=== PATIENT | male | born 1975 | race Caucasian/White ===

== ENCOUNTER 2020-09-15 15:36 | Emergency (ER) | payer SELFPAY ==
[2020-09-15] MEDS: EPINEPHrine 0.1 mg/mL SYR 10 mL 1 MG IVP ×8 (15:39→16:16)
[2020-09-15 15:41] VITALS: BP 180/121; PULSE 133; RESP 18; O2SAT 81; BMI 27.1
[2020-09-15] MEDS: amiodarone 50 mg/mL SDV 3 mL 150 MG IVP ×2 (15:44→15:51)
[2020-09-15] MEDS: sodium chloride 0.9% 1,000 ML 999 ML IV (15:50)
[2020-09-15] MEDS: naloxone 0.4 mg/ml SDV 1 MG IVP (15:58)
[2020-09-15 16:06] LABS: Basophils # 0.1 10^3/uL (0.0-0.1); Basophils % 0.7 %; Eosinophils # 0.2 10^3/uL (0.0-0.8); Eosinophils % 1.1 %; Hemoglobin 14.8 g/dL (11.7-16.6); Lymphocytes # 8.8 10^3/uL (0.8-4.8); Mean Corpuscular HGB Conc 30.2 g/dL (30.0-36.0); Mean Corpuscular Hemoglobin 29.6 pg (28.0-34.0); Mean Platelet Volume 8.9 fL (7.4-10.4); Monocytes # 0.6 10^3/uL (0.2-0.9); Monocytes % 3.2 %; Neutrophils # 7.82 10^3/uL (1.8-7.7); Neutrophils % 41.8 %; Nucleated Red Blood Cells % 0.2 %; Platelet Count 287 10^3/cmm (130-400); Red Cell Distribution Width 13.5 % (12.1-15.1); White Blood Count 18.7 10^3/uL (4.0-10.0)
[2020-09-15] MEDS: sodium bicarbonate 8.4% 1 mEq/mL 50mL Syr 50 MEQ IVP ×4 (16:06→16:29)
[2020-09-15] MEDS: calcium chloride 10% Syr 10 mL 1 GM IVP (16:12)
--- NOTE | 2020-09-15 16:18 | ECG_ITS ---
[facility] Test Date: 2020-09-15 Pat Name: Maged Rod Department: Room: Gender: Male Child'S Nurse: : 1975 Requested By: Brian Stevens Order Number: [id number] Isak MD: Darian Meza M.D. Measurements Intervals [place] Rate: 135 P: 69 NH: 189 QRS: -88 QRSD: 192 T: 75 QT: 407 QTc: 612 Interpretive Statements SINUS TACHYCARDIA WITH FREQUENT VENTRICULAR PREMATURE COMPLEXES MARKED LEFT AXIS DEVIATION [QRS AXIS < -30] INTRAVENTRICULAR CONDUCTION DELAY [130+ ms QRS DURATION] WARNING: DATA QUALITY MAY AFFECT INTERPRETATION No previous ECG available for comparison Electronically Signed On 09-15-2020 21:01:13 CDT by Darian Meza M.D. [id number] f
[2020-09-15] MEDS: lidocaine drip 2,000 MG/500 ML PREMIX 30 MG IV (16:19)
[2020-09-15 16:25] LABS: Alveolar-Arterial Oxygen Gradi 73.1 mmHg (5-10); Arterial Blood Gas Hematocrit 43.8 % (42-52); Blood Gas Allen Test Pos; Blood Gas Operator Identificat GD; Blood Gas Sample Site Radial, right; Blood Gas Sample Type Arterial; Carboxyhemoglobin 3.6 %THgb (0.4-20.1); HCO3 ABG 19.2 mmol/L (22-26); HGB O2 Sat 85.3 % (95-100); Ionized Calcium Level - ABG 1.4 mmol/L (1.1-1.4); Methemoglobin 0.8 % (0.4-1.5); Oxygen Device AMBU; Oxygen Saturation ABG 89.3; PO2 ABG 76.5 mmHg (80.0-100.0); Potassium Level - ABG 3.2 mmol/L (3.5-5.0); Total Hemoglobin 14.3 g/dL (14-18)
[2020-09-15 16:26] LABS: ABG PCO2 67.1 mmHg (35-45); ABG PH Result 7.07 (7.35-7.45)
[2020-09-15 16:31] VITALS: O2SAT 91
--- NOTE | 2020-09-15 16:32 | ED_ITS ---
HPI - CPR General: Chief Complaint: Cardiac Arrest/CPR Stated Complaint: CPR in progress Time Seen by Provider: 09/15/20 15:55 History of Present Illness: HPI narrative: This patient presented to the emergency department in full cardiac arrest with CPR in progress by EMS. Patient was found in his car at [facility] by bystander. Patient was started on CPR by bystanders. EMS responded within 5 minutes. Began CPR patient was in and out of V. tach V. fib and asystole type rhythm patient had multiple shocks and multiple rounds of epinephrine. Patient has also received over 300 mg of amiodarone prior to arrival. On arrival patient had pupils that were fixed and dilated and already lost his bladder. Patient continued to be in a V. tach V. fib rhythm. Continued had multiple rounds of CPR and epinephrine. Please see nurses notes for all ACLS protocol drugs and patient's MAR. Did consult cardiology Dr. Meza who did come to the bedside. Still had several rounds of CPR and intermittent pulse last rhythm patient appears to be in a rapid wide-complex rhythm but does have a pulse. Patient is on a lidocaine drip and an amiodarone drip. complaint: found unresponsive Onset (ago): minute(s) Time: 15:20 Timing confirmed by: other Place: street Bystander CPR performed: Yes AED applied by bystander/extruder operator helper: Yes Shock advised: Yes Number of shocks delivered: >3 Downtime before ACLS arrival (mins): 5 Initial findings in the field: unresponsive ROSC in the field: Yes Associated injuries: No Treatments prior to arrival: intubation, BMV, chest compressions, defibrillated shocks #, epinephrine mgs # and amiodarone Review of Systems General: Reports: ROS unobtainable due to endotracheal tube, ROS unobtainable due to medical condition and ROS unobtainable due to mental status Physical Exam Cardio: RATE: Other RHYTHM: other Course Reevaluation(s): Reevaluation #1: Patient had several rounds of CPR several rounds of epinephrine patient is on amiodarone drip and lidocaine drip. Patient had epi shock additional times in the emergency department currently patient does have a pulse patient is still unresponsive intubated last blood pressure was 152/88. Patient in CT scan at this time Time: 16:40 Reevaluation #2: I had a long conversation with the patient's father and other family members. We did discuss the patient's significant medical issues at this time and multiple rounds of CPR with multiple shocks. Patient is intubated at this time patient does have a wide-complex rhythm heart rate of 136 with a blood pressure of 148/96 pulse ox is 88% ET tube in place patient on the vent family members have decided to make the patient comfort care if the patient does go into a pulseless rhythm again they wished us to let the patient pass we will honor the family's wishes Time: 16:55 Reevaluation #3: Dr. Ornelas at the bedside time is 171. We did review the case with patient's family they have elected to stop all care at this time and that the patient passed of natural causes. Patient's ventilator was turned off with family's approval per diem interpreter was turned off. We will allow natural . Time: 17:05 Additional Reevaluation(s): Patient was pronounced at 1712. Consultations: Consultation #1: Dr. Meza at the bedside Time: 16:10 Consultation #2: Dr. Ornelas consulted he wishes to wait for head CT and more l abs prior to transferring to ICU. Time: 16:40 Consultation #3: I have discussed further with Dr. Ornelas he will see the pat iealfredo in the emergency department. He is aware that the patient's family wishes the patient be comfort care only at this time if the patient goes into a pulseless rhythm again they do wish no further action be taken. Time: 17:00 Additional Consultation(s): Dr. Ornelas at the bedside time is 171. We did review the case with patient's family they have elected to stop all care at this time and that the patient passed of natural causes. Patient's ventilator was turned off with family's approval per diem interpreter was turned off. We will allow natural . Vital Signs: Vital signs: Vital Signs Pulse Rate 133 H 09/15/20 15:41 Respiratory Rate 14 09/15/20 17:03 Blood Pressure 180/121 09/15/20 15:41 Pulse Oximetry 91 09/15/20 16:31 MDM - Cardiac Arrest/CPR Lab Data: Labs: Lab Results 09/15/20 09/15/20 09/15/20 Range/Units 13:50 13:50 13:50 WBC 18.7 H (4.0-10.0) 10^3/ uL RBC 5.00 (4.1-5.3) 10^6/u L Hgb 14.8 (11.7-16.6) g/dL Hct 49.0 (42.0-52.0) % MCV 98.0 H (80-94) fL MCH 29.6 (28.0-34.0) pg MCHC 30.2 (30.0-36.0) g/dL RDW 13.5 (12.1-15.1) % Plt Count 287 (130-400) 10^3/c mm MPV 8.9 (7.4-10.4) fL Neut % (Auto) 41.8 % Lymph % (Auto) 47.0 % [place] % (Auto) 3.2 % Eos % (Auto) 1.1 % Baso % (Auto) 0.7 % Neut # (Auto) 7.82 H (1.8-7.7) 10^3/u L Lymph # (Auto) 8.8 H (0.8-4.8) 10^3/u L [place] # (Auto) 0.6 (0.2-0.9) 10^3/u L Eos # (Auto) 0.2 (0.0-0.8) 10^3/u L Baso # (Auto) 0.1 (0.0-0.1) 10^3/u L Nucleated RBC % (a uto) 0.2 % Nucleated RBCs # 0.0 /100WBC PT Cancelled INR Cancelled APTT Cancelled Specimen Type Sample Site ABG pH (7.35-7.45) ABG pCO2 (35-45) mmHg ABG pO2 (80.0-100.0) mmH g ABG HCO3 (22-26) mmol/L ABG O2 Saturation ABG Base Excess (-2.0-2.0) mmol/ L Ced Test A-a O2 Gradient (5-10) mmHg Hematocrit (42-52) % Hgb O2 Saturation (95-100) % Carboxyhemoglobin (0.4-20.1) %THgb Methemoglobin (0.4-1.5) % Total Hemoglobin (14-18) g/dL Ionized Calcium (1.1-1.4) mmol/L O2 Delivery Device O2 Liters/Min % FiO2 % Center Receptionist ID Sodium Cancelled Potassium Cancelled Chloride Cancelled Carbon Dioxide Cancelled Anion Gap Cancelled BUN Cancelled Creatinine Cancelled GFR Calculation Cancelled Glucose Cancelled Calculated Osmolal ity Cancelled Lactate (0.5-2.2) mmol/L Calcium Cancelled Magnesium Cancelled Total Bilirubin Cancelled AST Cancelled ALT Cancelled Alkaline Phosphata se Cancelled NT-Pro-B Natriuret Pep Cancelled Total Protein Cancelled Albumin Cancelled Globulin Cancelled Urine Color (Yellow) Urine Appearance (CLEAR) Urine pH (5-7) Ur Specific Gravit y (1.005-1.030) Urine Protein (Negative) Urine Glucose (UA) (Normal) Urine Ketones (Negative) Urine Blood (Negative) Urine Nitrate (Negative) Urine Bilirubin (Negative) Urine Urobilinogen (Negative) mg/dL Ur Leukocyte Marisela ase (Negative) Urine RBC (0-2) /hpf Urine WBC (0-5) /hpf Ur Squamous Epith Cells (0-5) /hpf Amorphous Sediment Urine Bacteria (NONE) /hpf Urine Mucus /hpf Salicylates Cancelled Urine Opiates Scre en (Negative) ng/mL Acetaminophen Cancelled Ur Barbiturates Sc reen (Negative) ng/mL Ur Phencyclidine S crn (Negative) ng/mL Ur Amphetamines Sc reen (Negative) ng/mL U Benzodiazepines Scrn (Negative) ng/mL Urine Cocaine Scre en (Negative) ng/mL U Marijuana (THC) Screen (Negative) ng/mL Ethyl Alcohol Cancelled 09/15/20 09/15/20 09/15/20 Range/Units 13:50 16:15 16:28 WBC (4.0-10.0) 10^3/ uL RBC (4.1-5.3) 10^6/u L Hgb (11.7-16.6) g/dL Hct (42.0-52.0) % MCV (80-94) fL MCH (28.0-34.0) pg MCHC (30.0-36.0) g/dL RDW (12.1-15.1) % Plt Count (130-400) 10^3/c mm MPV (7.4-10.4) fL Neut % (Auto) % Lymph % (Auto) % [place] % (Auto) % Eos % (Auto) % Baso % (Auto) % Neut # (Auto) (1.8-7.7) 10^3/u L Lymph # (Auto) (0.8-4.8) 10^3/u L [place] # (Auto) (0.2-0.9) 10^3/u L Eos # (Auto) (0.0-0.8) 10^3/u L Baso # (Auto) (0.0-0.1) 10^3/u L Nucleated RBC % (a uto) % Nucleated RBCs # /100WBC PT INR APTT Specimen Type Arterial Sample Site Radial, right ABG pH 7.07 L* (7.35-7.45) ABG pCO2 67.1 H* (35-45) mmHg ABG pO2 76.5 L (80.0-100.0) mmH g ABG HCO3 19.2 L (22-26) mmol/L ABG O2 Saturation 89.3 ABG Base Excess -12.0 L (-2.0-2.0) mmol/ L Ced Test Pos A-a O2 Gradient 73.1 H (5-10) mmHg Hematocrit 43.8 (42-52) % Hgb O2 Saturation 85.3 L (95-100) % Carboxyhemoglobin 3.6 (0.4-20.1) %THgb Methemoglobin 0.8 (0.4-1.5) % Total Hemoglobin 14.3 (14-18) g/dL Ionized Calcium 1.4 (1.1-1.4) mmol/L O2 Delivery Device Ambu O2 Liters/Min 15.0 % FiO2 100.0 % Center Receptionist ID Gd Sodium 143.0 Potassium 3.2 L Chloride Carbon Dioxide Anion Gap BUN Creatinine GFR Calculation Glucose 380.0 H Calculated Osmolal ity Lactate 11.5 H* (0.5-2.2) mmol/L Calcium Magnesium Total Bilirubin AST ALT Alkaline Phosphata se NT-Pro-B Natriuret Pep Total Protein Albumin Globulin Urine Color Yellow (Yellow) Urine Appearance Hazy A (CLEAR) Urine pH 5 (5-7) Ur Specific Gravit y 1.020 (1.005-1.030) Urine Protein Trace (Negative) Urine Glucose (UA) Norm (Normal) Urine Ketones Negative (Negative) Urine Blood 3+ H (Negative) Urine Nitrate Negative (Negative) Urine Bilirubin Neg (Negative) Urine Urobilinogen Norm (Negative) mg/dL Ur Leukocyte Marisela ase 1+ H (Negative) Urine RBC 15-25 H (0-2) /hpf Urine WBC 15-25 H (0-5) /hpf Ur Squamous Epith Cells None (0-5) /hpf Amorphous Sediment Not Reportable Urine Bacteria 2+ H (NONE) /hpf Urine Mucus 1+ /hpf Salicylates Urine Opiates Scre en (Negative) ng/mL Acetaminophen Ur Barbiturates Sc reen (Negative) ng/mL Ur Phencyclidine S crn (Negative) ng/mL Ur Amphetamines Sc reen (Negative) ng/mL U Benzodiazepines Scrn (Negative) ng/mL Urine Cocaine Scre en (Negative) ng/mL U Marijuana (THC) Screen (Negative) ng/mL Ethyl Alcohol 09/15/20 Range/Units 16:28 WBC (4.0-10.0) 10^3/ uL RBC (4.1-5.3) 10^6/u L Hgb (11.7-16.6) g/dL Hct (42.0-52.0) % MCV (80-94) fL MCH (28.0-34.0) pg MCHC (30.0-36.0) g/dL RDW (12.1-15.1) % Plt Count (130-400) 10^3/c mm MPV (7.4-10.4) fL Neut % (Auto) % Lymph % (Auto) % [place] % (Auto) % Eos % (Auto) % Baso % (Auto) % Neut # (Auto) (1.8-7.7) 10^3/u L Lymph # (Auto) (0.8-4.8) 10^3/u L [place] # (Auto) (0.2-0.9) 10^3/u L Eos # (Auto) (0.0-0.8) 10^3/u L Baso # (Auto) (0.0-0.1) 10^3/u L Nucleated RBC % (a uto) % Nucleated RBCs # /100WBC PT INR APTT Specimen Type Sample Site ABG pH (7.35-7.45) ABG pCO2 (35-45) mmHg ABG pO2 (80.0-100.0) mmH g ABG HCO3 (22-26) mmol/L ABG O2 Saturation ABG Base Excess (-2.0-2.0) mmol/ L Ced Test A-a O2 Gradient (5-10) mmHg Hematocrit (42-52) % Hgb O2 Saturation (95-100) % Carboxyhemoglobin (0.4-20.1) %THgb Methemoglobin (0.4-1.5) % Total Hemoglobin (14-18) g/dL Ionized Calcium (1.1-1.4) mmol/L O2 Delivery Device O2 Liters/Min % FiO2 % Center Receptionist ID Sodium Potassium Chloride Carbon Dioxide Anion Gap BUN Creatinine GFR Calculation Glucose Calculated Osmolal ity Lactate (0.5-2.2) mmol/L Calcium Magnesium Total Bilirubin AST ALT Alkaline Phosphata se NT-Pro-B Natriuret Pep Total Protein Albumin Globulin Urine Color (Yellow) Urine Appearance (CLEAR) Urine pH (5-7) Ur Specific Gravit y (1.005-1.030) Urine Protein (Negative) Urine Glucose (UA) (Normal) Urine Ketones (Negative) Urine Blood (Negative) Urine Nitrate (Negative) Urine Bilirubin (Negative) Urine Urobilinogen (Negative) mg/dL Ur Leukocyte Marisela ase (Negative) Urine RBC (0-2) /hpf Urine WBC (0-5) /hpf Ur Squamous Epith Cells (0-5) /hpf Amorphous Sediment Urine Bacteria (NONE) /hpf Urine Mucus /hpf Salicylates Urine Opiates Scre en Negative (Negative) ng/mL Acetaminophen Ur Barbiturates Sc reen Negative (Negative) ng/mL Ur Phencyclidine S crn Negative (Negative) ng/mL Ur Amphetamines Sc reen Negative (Negative) ng/mL U Benzodiazepines Scrn Negative (Negative) ng/mL Urine Cocaine Scre en Negative (Negative) ng/mL U Marijuana (THC) Screen Negative (Negative) ng/mL Ethyl Alcohol Discharge Plan Discharge Patient Disposition: Clinical Impression: Cardiac arrest, Acute respiratory failure, Wide-complex tachycardia Coding Level of Care Code ED Personal Care Home Administrator for Chg Fwd Exam Problem Focused
[2020-09-15] MEDS: heparin 5,000 unit/mL INJ 1 mL 4000 UNIT IVP (16:34)
[2020-09-15 16:44] LABS: Lactate (Lactic Acid level) 11.5 mmol/L (0.5-2.2)
[2020-09-15 16:46] LABS: Slide Review Slide Review Perform
[2020-09-15 16:57] LABS: Glucose Urine UA Norm (Normal); Ketones Urine Negative (Negative); Nitrate Urine Negative (Negative); Protein Urine Trace (Negative); Urine Appearance Hazy (CLEAR); Urine Color Yellow (Yellow); pH Urine 5 (5-7)
[2020-09-15 17:00] LABS: Bilirubin Urine Neg (Negative); Blood Urine 3+ (Negative)
[2020-09-15 17:01] LABS: Add Urine Microscopic? YES; Leukocyte Esterase Urine 1+ (Negative); Urobilinogen Urine Norm (Negative)
[2020-09-15 17:03] VITALS: RESP 14
[2020-09-15 17:04] LABS: Amphetamines Screen Urine Negative (Negative); Barbiturates Screen Urine Negative (Negative); Benzodiazepines Screen Urine Negative (Negative); Cocaine Screen Urine Negative (Negative); Opiate Screen Urine Negative (Negative); PCP Screen Urine Negative (Negative); THC Screen Urine Negative (Negative)
[2020-09-15 17:15] LABS: RBC Urine 15-25 /hpf (0-2); WBC Urine 15-25 /hpf (0-5)
[2020-09-15 17:16] LABS: Bacteria Urine 2+ /hpf; Mucus Urine 1+ /hpf
--- NOTE | 2020-09-15 17:16 | PC.NURSE ---
Ventilator turned off at 1712
[2020-09-15 17:17] LABS: Add Urine Culture? Yes
--- NOTE | 2020-09-15 17:20 | PM.MISC ---
Miscellaneous Note Purpose of Documentation: Event note Note: ER called cardiology to assist with management of a patient with cardiac arrest. 45-year-old man who was found in his car unconscious and received bystander CPR before EMS arrived and found him to be in V. tach. He later on went into asystole. Multiple rounds of CPR outside and in the ER. By the time cardiology was called, he had already been coding for close to an hour. He had fixed and dilated pupils. His lactate level was more than 11. He was started on amiodarone and lidocaine drip. He regained his pulse briefly. EKG performed showed sinus tachycardia with multiple PVCs. No evidence of ST elevation CO. Plan was to put him on cooling protocol and try to stabilize him and work him up for underlying etiology. However patient again had a cardiac arrest and family decided to stop any further resuscitation efforts secondary to prolonged CPR and minimal chances of neurological recovery.
--- NOTE | 2020-09-15 17:34 | PC.NURSE ---
1714: TOD 1725: Skidder Lever Operator called 1730: MTS called by Correspondence Dictator Pt's father requested [facility] in [place].
--- NOTE | 2020-09-15 17:40 | PM.CONSULT ---
Providers/Reason For Consult Consulting Physican/Specialty*: Dr. Stevens/ER physician Reason for Consult*: Post cardiac arrest CODE BLUE Requesting Physcian: Dr. Stevens History of Present Illness History of Present Illness Maged Rod is a 45 year old male with no known medical history who was brought in by EMS to the ER with CPR in progress. Patient was found in his car 1 month by bystanders. When EMS responded patient was found to be in wide-complex tachycardia for which he had CPR and multiple shocks with multiple rounds of epinephrine and field. Patient was brought to the ER where he had multiple rounds of CPR going in and out of V. tach-V. fib for which he received multiple rounds of epinephrine, amiodarone along with lidocaine and amiodarone drip. Patient had a CPR for over an hour. As per the ER physician patient's father arrived at that point he was made a DNR and admitted on lidocaine drip was continued. Blood work which was obtained in the ER showed a white count of 18.7, hemoglobin of 14.8, platelet count 287, lactate of 11.5, ABG showing a pH of 7.07, PCO2 of 67, PO2 of 76, glucose of 380, sodium of 143, potassium of 3.2 while UA showed 1+ leuk esterase, 3+ blood and urine drug screen negative. On examination patient was in white complex tachycardia going in and out of V. tach or V. fib on amiodarone drip with blood pressure of 180 systolic saturating 78% on 100% FiO2 with ventilator with a PEEP of 10. Review of Systems General: Reports: ROS unobtainable due to endotracheal tube, ROS unobtainable due to medical condition and ROS unobtainable due to mental status Meds/Allergies Home Medications and Allergies Home Medications Medication Instructions Recorded Confirmed Last Taken Type Unable to Assess 09/15/20 09/15/20 Unknown History Allergies Allergy/AdvReac Type Severity Reaction Status Date / Time Unable to Assess Allergy Unverified 09/15/20 15:58 PFSH Acute PFSH: Family History (Updated 09/15/20 @ 17:51 by Duane Spann MD) Other CAD (coronary artery disease) Vitals/I&O/Wt Last Vital Signs Pulse 133 H 09/15/20 15:41 Resp 14 09/15/20 17:03 BP 180/121 09/15/20 15:41 Pulse Ox 91 09/15/20 16:31 09/15/20 09/15/20 09/15/20 06:59 14:59 22:59 Intake Total 1206 / 1206 Balance 1206 / 1206 Weight last 48 hrs Weight 88.451 kg Physical Exam Narrative: EXAM NARRATIVE: EXAM NARRATIVE: General: Intubated, not sedated not responding to painful stimulus HEENT: PERRLA, pupils bilaterally fixed and not reactive Chest:Bronchial breath sounds b/l ,decreased air entry, equal good air entry bilaterally, no more fine basal crackles CVS: S1-S2 regular tachycardia, faint sound, no gallops, no rubs Abdomen: Soft, nontender, no organomegaly, bowel sounds present, morbidly obese Neuro: Intubated, not sedated, not responding, bilateral fixed pupils, plantars upgoing bilaterally Urinary Catheter Management^: Bhandari: Cath Placed During This Visit: yes Urinary Catheter Date of Insertion: 09/15/20 Urinary Catheter Time of Insertion: 16:25 A&P Assessment and plan (1) Cardiac arrest: Status: Acute (2) Acute respiratory failure: Status: Acute (3) Wide-complex tachycardia: Status: Acute (4) Unknown family medical history: Status: Acute Additional A&P Information Patient was found unresponsive in the parking at [facility] by bystanders in his car and when EMS responded he was in wide-complex tachycardia for unknown period of time. Post EMS responding patient required multiple rounds of CPR including epinephrine, lidocaine amnio boluses and CPR for over 2 hours after which he kept going in and out of wide-complex tachycardia and was coded multiple times with CODE JUAN PABLO called twice. Patient's CODE STATUS was changed to DNR after talking to patient's father who was at bedside. It was discussed with father with Dr. Stevens?ER physician at bedside that unfortunately patient has had a CPR for over 2 hours and it is unknown for how long he was unresponsive with him saturating of around 80% and fixed pupils unfortunately all medical interventions will be futile. At that point patient's father decided to make patient comfort care and lidocaine drip and amiodarone drip was discontinued and patient was extubated. Consult Attestations Medical Necessity Statement: As per primary team. Patient is post CPR comfort care measures only at present and has been terminally extubated. Time Spent in Patient Care: 16 - 35 minutes Coding Level of Care Code Acute Sectionizer for Chg Fwd Diagnoses Cardiac arrest I46.9 Acute respiratory failure J96.00 Wide-complex tachycardia I47.2 Unknown family medical history
--- NOTE | 2020-09-15 18:23 | PC.NURSE ---
6 failed attempts at cardioversion during CODE BLUE. 1547:Vtach, shocked at 120J, then pulseless Vtach 1549:Vtach, shocked at 120J, then pulseless Vtach 1555:Vtach, shocked at 150J, then pulseless Vtach 1602:Vtach, shocked at 200J, then pulseless Vtach 1611:Vtach, shocked at 200J, then pulseless Vtach 1613:Vtach, shocked at 200J, then A-fib with RVR with wide complex QRS and frequent PVCs
--- NOTE | 2020-09-15 18:31 | PC.NURSE ---
CODE FLOW SHEET: Pt arrived to ED with CPR in progress, intubated with BVM support and cardiac pads, IO in place. Pt was transferred to room bed with compressions continued. Pt placed on Zoll and monitoring, see code flow sheet for times of medications and procedures. Dr Meza was at bedside when EKG was obtained at 1620. ABG was obtained at 1620 as well. VS printed off and scanned into chart. Pt was placed on comfort care only at [address] Pt family was brought back to room, ventilator and meds turned off at 1712. At 1714 Zoll showed Asystole and TOD was pronounced. 181: Body released by Wilber Vega. 1840: Family requested home be notified, [facility] notified.
[2020-09-15 19:10] LABS: Troponin T (5th) Once 862 ng/L (0-15)
== END 2020-09-15 19:18 | disposition expired ==
PROVIDERS: Emergency Provider Emergency Medicine
DX: I46.9 Cardiac arrest, cause unspecified (principal); J96.00 Acute respiratory failure, unspecified whether with hypoxia or hypercapnia; R00.0 Tachycardia, unspecified
CPT/HCPCS: 36600; 51702; 80051; 80306; 81001; 82330; 82805; 83605; 84484; 85025; 93005; 94002; 94799; 96365; 96366; 96375; 99291; 99292; J0171; J0282; J1644; J2001; J2310; J3475; J3490; J7030